=== PATIENT | male | born 1960 ===

== ENCOUNTER 2016-09-05 08:18 | Emergency (ER) | payer MEDICAID ==
[2016-09-05 08:18] VITALS: BMI 23.3
[2016-09-05 08:22] VITALS: BP 116/77; PULSE 67; RESP 18; TEMP 98; O2SAT 98
--- NOTE | 2016-09-05 08:40 | ED PDOC ---
HPI: Back Time Seen by Provider: 09/05/16 08:23 Chief Complaint (Nursing): Back Pain Chief Complaint (Provider): Lower Back Pain History Per: Patient History/Exam Limitations: no limitations Onset/Duration Of Symptoms: Days (x2 days) Current Symptoms Are (Timing): Still Present Associated Symptoms: None Exacerbating Factor(s): Movement Additional Complaint(s): Rene Santo, a 56 year old male, presents to the ED with complaints of lower back pain x2 days. The patient report she took one advil which offered no relief. He states that there i sno radiation of the pain but the pain worsens with movement. Past Medical History Reviewed: Historical Data, Nursing Documentation, Vital Signs Vital Signs: Last Vital Signs Temp 98.0 F 09/05/16 08:21 Pulse 67 09/05/16 08:21 Resp 18 09/05/16 08:21 BP 116/77 09/05/16 08:21 Pulse Ox 98 09/05/16 08:21 - Medical History PMH: No Chronic Diseases - Surgical History Surgical History: No Surg Hx - Family History Family History: States: Unknown Family Hx - Home Medications Home Medications: Ambulatory Orders Medication Instructions Recorded No Known Home Med 06/06/15 - Allergies Allergies/Adverse Reactions: Allergies Allergy/AdvReac Type Severity Reaction Status Date / Time No Known Allergies Allergy Verified 09/05/16 08:28 Review of Systems ROS Statement: Except As Marked, All Systems Reviewed And Found Negative Genitourinary Male: Negative for: Dysuria, Frequency, Incontinence, Hematuria Musculoskeletal: Positive for: Back Pain (Lower back pain.) Physical Exam - Reviewed Nursing Documentation Reviewed: Yes Vital Signs Reviewed: Yes - Physical Exam Appears: Positive for: Non-toxic (Mild painful distress) Head Exam: Positive for: ATRAUMATIC, NORMAL INSPECTION, NORMOCEPHALIC Skin: Positive for: Normal Color, Warm, Dry Eye Exam: Positive for: Normal appearance, EOMI, PERRL ENT: Positive for: Normal ENT Inspection Neck: Positive for: Normal, Painless ROM, Supple Cardiovascular/Chest: Positive for: Regular Rate, Rhythm, Chest Non Tender. Negative for: Tachycardia Respiratory: Positive for: Normal Breath Sounds. Negative for: Wheezing, Respiratory Distress Gastrointestinal/Abdominal: Positive for: Normal Exam, Bowel Sounds, Soft. Negative for: Tenderness, Guarding, Rebound Back: Positive for: Vertebral Tenderness (Midline lumbar tenderness) Extremity: Positive for: Normal ROM. Negative for: Tenderness, Pedal Edema, Deformity, Swelling Neurologic/Psych: Positive for: Alert, Oriented, Gait. Negative for: Motor/ Sensory Deficits - Laboratory Results Urine dip results: Negative for: Leukocyte Esterase, Blood, Nitrate, Ketones, Glucose, Bilirubin, Protein - ECG O2 Sat by Pulse Oximetry: 98 (RA) Pulse Ox Interpretation: Normal Medical Decision Making Medical Decision Makin Initial plan: 56 year old male presenting with lower back pain Initial plan: * CT lumbar spine * Udip * Flexeril 10mg PO * Motrin tab 600mg PO * Reevaluation 1124 CT Lumbar Spine w/o Contrast Impression 1. No acute fracture, spondylolysis or spondylolisthesis 2.Mild multilevel degenerative disc disease, broad based central and left paracentral disc protrusion and mild bilateral facet arthropathy with resultant mild bilateral faraminal stenosis. No spinal canal stenosis. 3. Moderate enlargement of the prostate gland with median lobe hypertrophy indenting on the base of the brain urinary bladder.Correlate wit physical exam and PSA levels. 11:53 Patient will be given a copy of CT results to show PMD the incidental findings of the prostate. Scribe Attestation Documented by Cally Dahl acting as a scribe for Kathleen Gutierrez MD. Provider Attestation All medical record entries made by the Scribe were at my direction and personally dictated by me. I have reviewed the chart and agree that the record accurately reflects my personal performance of the history, physical exam, medical decision making, and the department course for this patient. I have also personally directed, reviewed, and agree with the discharge instructions and disposition. Disposition - Clinical Impression Clinical Impression: Protruded lumbar disc - Disposition Condition: STABLE
--- NOTE | 2016-09-05 11:26 | CT ---
PROCEDURE: CT Lumbar Spine without contrast HISTORY: Midline lumbar pain COMPARISON: None. TECHNIQUE: Axial computed tomography images were obtained of the lumbar spine without the use of intravenous contrast. Coronal and sagittal reformatted images were created and reviewed. Radiation dose: Total exam DLP = 486.83 mGy-cm. This CT exam was performed using one or more of the following dose reduction techniques: Automated exposure control, adjustment of the mA and/or kV according to patient size, and/or use of iterative reconstruction technique. FINDINGS: VERTEBRAE: There is no malalignment of the lumbar vertebral bodies. Lumbar lordosis is maintained. Vertebral bodies are normal in height. There is no acute fracture, spondylolysis or spondylolisthesis. There is mild diffuse bone demineralization. Please note evaluation of the spinal canal, conus medullaris and nerve roots of cauda equina is limited in the absence of intrathecal contrast. DISCS/SPINAL CANAL/NEURAL FORAMINA: L1-2: No large disc herniation, neural foraminal or spinal canal stenosis. L2-3: Mild posterior disc bulge. No neural foraminal or spinal canal stenosis. L3-4: Mild posterior disc bulge, mild ligamentum flavum infolding and mild bilateral facet arthropathy with resultant moderate bilateral neural foraminal stenosis. No. Spinal canal stenosis L4-5: Diffuse posterior disc bulge, ligamentum flavum infolding and moderate bilateral facet arthropathy with resultant moderate bilateral neural foraminal stenosis without spinal canal stenosis. L5-S1: Broad-based central an left paracentral disc protrusion abuts the ventral thecal sac without central spinal canal stenosis. Mild bilateral facet arthropathy contributes to mild bilateral neural foraminal stenosis. PARASPINAL SOFT TISSUES: The paraspinous soft tissues are normal. There is a 2 mm nonobstructing stone in the upper pole of the right kidney. Otherwise, imaged portion of the retroperitoneum is grossly within normal limits. There is moderate enlargement of the prostate gland with median lobe hypertrophy indenting on the base of the urinary bladder. OTHER FINDINGS: None. IMPRESSION: 1. No acute fracture, spondylolysis or spondylolisthesis. 2. Mild multilevel degenerative disc disease, worse at L5-S1 with a broad-based central and left paracentral disc protrusion and mild bilateral facet arthropathy with resultant mild bilateral neural foraminal stenosis. No spinal canal stenosis. 3. Moderate enlargement of the prostate gland with median lobe hypertrophy indenting on the base of the brain urinary bladder. Please correlate with physical examination and PSA levels.
== END 2016-09-05 12:13 | disposition home or self-care (01) ==
LOC: H.ER 08:18
DX: M51.27 Other intervertebral disc displacement, lumbosacral region (principal); N40.0 Benign prostatic hyperplasia without lower urinary tract symptoms